=== PATIENT | female | born 1990 | race Caucasian/White ===

== ENCOUNTER 2019-04-26 15:45 | Emergency (ER) | payer OTHER ==
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
[2019-04-26] MEDS ORDERED: Iohexol 300* (CONTRAST) 10 ML SDV IV ONE (16:44)
[2019-04-26 17:22] LABS: ABS Lymphocytes 1.1 10^3/ul (1.0-4.8); ABS Monocytes 0.9 10^3/ul (0-0.8); ABS Neutrophils 10.7 10^3/ul (1.5-7.7); Eosinophil % 0.2 %; Hematocrit 36 % (35-47); Lymphocyte % 8.5 %; Mean Corpuscular HGB Conc 34 g/dL (31-36); Mean Corpuscular Hemoglobin 30 pg (27-31); Mean Corpuscular Volume 89 fL (80-97); Mean Platelet Volume 9.1 fL (7.4-10.4); Platelet Count 193 10^3/uL (150-450); Red Blood Count 4.04 10^6 /uL (3.70-4.87); Red Cell Distribution Width 13 % (10-15); White Blood Count 12.7 10^3/uL (3.5-10.8)
[2019-04-26] MEDS ORDERED: Morphine 4 MG/ML VIAL (1 ml) 4 MG/ML VIAL IV ONE (17:28)
[2019-04-26] MEDS ORDERED: Ondansetron INJ* 2 MG/ML VIAL IV ONE (17:28)
[2019-04-26 17:44] LABS: ALT 29 U/L (7-52); AST 36 U/L (13-39); Albumin 3.8 g/dL (3.2-5.2); Albumin/Globulin Ratio 1.7 (1-3); Alkaline Phosphatase 40 U/L (34-104); Anion Gap 3 mmol/L (2-11); BUN/Creatinine Ratio 13.7 (8-20); Blood Urea Nitrogen 13 mg/dL (6-24); CO2 Carbon Dioxide 25 mmol/L (22-32); Calcium 8.4 mg/dL (8.6-10.3); Chloride 107 mmol/L (101-111); Creatine Kinase 178 U/L (10-223); EGFR Non-African American 71.1 (>60); Globulin 2.3 g/dL (2-4); Glucose 106 mg/dL (70-100); Potassium 3.9 mmol/L (3.5-5.0); Sodium 135 mmol/L (135-145); Total Protein 6.1 g/dL (6.4-8.9)
[2019-04-26 17:50] LABS: HCG Pregnancy < 0.60 mIU/mL
[2019-04-26 18:44] VITALS: BP 124/75
== END 2019-04-26 18:44 | disposition home or self-care (01) ==
LOC: ED 15:45
DX: R10.9 Unspecified abdominal pain (principal); R11.0 Nausea; V49.50XA Passenger injured in collision with unspecified motor vehicles in traffic accident, initial encounter; Y92.410 Unspecified street and highway as the place of occurrence of the external cause
CPT/HCPCS: 36415; 74177; 80053; 82550; 83605; 84702; 85025; 96374; 96375; 99282; J2270; J2405; Q9967